=== PATIENT | female | born 1970 | race Caucasian/White ===

== ENCOUNTER 2018-06-09 06:00 | Day surgery (SDC) | payer OTHER ==
[2018-06-09] MEDS ORDERED: PERCOCET 5-3251 EACH PO (09:47)
[2018-06-09] MEDS ORDERED: COLACE100 MG PO (09:48)
== END 2018-06-09 14:00 | disposition home or self-care (01) ==
LOC: CIR.AMB 06:00
DX: K64.4 Residual hemorrhoidal skin tags (principal); R85.612 Low grade squamous intraepithelial lesion on cytologic smear of anus (LGSIL)

== ENCOUNTER 2018-12-11 07:15 | Day surgery (SDC) | payer OTHER ==
[~2018-12-11 07:15] MED LIST: COLACE100 MG PO; PERCOCET 5-3251 EACH PO
== END 2018-12-11 12:30 | disposition home or self-care (01) ==
LOC: AMB-ENDOS 07:15
DX: K64.1 Second degree hemorrhoids (principal)

== ENCOUNTER 2019-04-10 05:57 | Inpatient (IN) | payer OTHER ==
[~2019-04-10] VITALS: Ht 157.5 cm; Wt 55.8 kg
[2019-04-11] MEDS ORDERED: PERCOCET 5-3251 EACH PO (07:59)
[2019-04-11] MEDS ORDERED: COLACE100 MG PO (07:59)
[2019-04-11] MEDS ORDERED: INTESTINEX680 M1 PO (07:59)
[2019-04-11] MEDS ORDERED: AMOX1TAB5 PO (07:59)
== END 2019-04-11 14:24 | disposition home or self-care (01) | DRG 349 ==
LOC: ER 05:57 → SEC-K 09:04 → O/R 13:37 → SURH 14:53
PROVIDERS: ADMIT Surgery
PROC: 0D9Q7ZZ Drainage of Anus, Via Natural or Artificial Opening (ICD-10-PCS; principal; 2019-04-10 11:00)
DX: K61.0 Anal abscess (principal); K62.89 Other specified diseases of anus and rectum; B96.29 Other Escherichia coli [E. coli] as the cause of diseases classified elsewhere

== ENCOUNTER 2020-02-15 07:30 | Day surgery (SDC) | payer OTHER ==
[~2020-02-15 07:30] MED LIST changes: +AMOX1TAB5 PO; +INTESTINEX680 M1 PO; +VITAMIN C PO
[2020-02-15] MEDS ORDERED: PERCOCET 5-3251 EACH PO (09:48)
[2020-02-15] MEDS ORDERED: COLACE100 MG PO (09:48)
== END 2020-02-15 16:20 | disposition home or self-care (01) ==
LOC: CIR.AMB 07:30
DX: K60.3 Anal fistula (principal)